=== PATIENT | female | born 1980 | race Caucasian/White ===

== ENCOUNTER 2024-06-26 10:13 | Emergency (ER) | payer MEDICAID, SELFPAY ==
[2024-06-26 10:15] VITALS: BMI 19.5
[2024-06-26 10:33] VITALS: BP 103/73; PULSE 92; RESP 20; TEMP 36.6; O2SAT 100; BMI 19.4
--- NOTE | 2024-06-26 11:22 | XR_ITS ---
Examination: PA lateral chest 2 views TECHNIQUE: Upright PA lateral chest 2 views Exam date and time: June 26, 2024 11:49 AM Comparison February 27, 2015 INDICATIONS: Shortness of breath coughing beginning 4 days ago. FINDINGS: Normal heart size No pneumonia or pulmonary edema Intact osseous structures IMPRESSION: No active disease
--- NOTE | 2024-06-26 11:56 | PD.EDURI ---
Upper Respiratory Inf. RME/HPI General Chief Complaint: Flu Like Symptoms Stated Complaint: FEVER BODY ACHES X3 DAYS Time Seen by Provider: 06/26/24 11:11 Source: patient Arrival date/time: 06/26/24 10:13 this is a 43-year-old female presents to the emergency department with complaints of generalized bodyaches, fever for 3 days. Denies shortness of breath no chest pain. Patient did not attempt any interventions or take any OTC medications prior to ED visit. Patient denies any other associated symptoms or aggravating factors. No modifying factors, no radiation, no migration. Mode of arrival: ambulatory Related Data Previous Rx's ?Medication ?Instructions ?Recorded cyclobenzaprine 10 mg tablet 10 mg PO TID PRN muscle spasm #30 10/17/20 tabs ibuprofen 600 mg tablet 600 mg PO Q8H PRN pain #30 tabs 10/17/20 albuterol sulfate 90 mcg/actuation 2 puff inhalation Q6H PRN 06/26/24 aerosol inhaler (Ventolin HFA) shortness of breath or wheezing #8.5 grams ibuprofen 800 mg tablet 800 mg PO Q8H PRN pain #20 tabs 06/26/24 Allergies Allergy/AdvReac Type Severity Reaction Status Date / Time tramadol Allergy Severe Seizure Verified 10/17/20 09:40 Review of Systems Review of Systems Systems Reviewed: All systems reviewed, normal except as documented Narrative Review of Systems: Gen: ++ fever, no chills, no weight loss EYES: No discharge, no visual changes, no pain HEENT: No ear pain, ++congestion, no sore throat PULM: No shortness of breath, ++ cough, no congestion CV: No chest pain, no dyspnea on exertion, no palpitations GI: No nausea, no vomiting, no diarrhea, no pain, no constipation : No frequency, no urgency,? no dysuria Musc/skel: No joint pain, no back pain Skin: No rash? ED Exam Narrative Physical exam: General: 43-year-old female awake and alert sitting up on Exam table in no acute distress, answering questions appropriately HENT: normocephalic, atraumatic, EOMI, PERRLA, moist mucous membranes Chest: chest wall is nontender Cardiac: regular rate and rhythm, normal S1 and S2, no murmurs, rubs, or gallops, capillary refill ?2 seconds Pulmonary: clear to auscultation bilaterally, no wheezing, crackles, or rhonchi Abdominal: active bowel sounds, soft, nontender, nondistended Neuro: A&OX3, CN II-XII intact, sensation grossly intact bilaterally in UE and LE. Skin: no rashes, no ecchymosis Ext: no lower extremity edema Course Quality Measures none Orders Category Date Time Status XR chest 2V Stat Exams 06/26/24 11:22 Completed Vital Signs Vital signs: Vital Signs Temperature 97.9 F 06/26/24 10:33 Pulse Rate 92 06/26/24 10:33 Respiratory Rate 20 06/26/24 10:33 Blood Pressure 103/73 06/26/24 10:33 Pulse Oximetry (%) 100 06/26/24 10:33 Oxygen Delivery Method Room Air 06/26/24 10:33 Upper Respiratory Infection Patient data External records reviewed:: [facility] previous records Clinical information provided by:: patient Social determinants that could affect healthcare access:: none Patient has the following chronic illnesses:: none How is presenting disease/condition affected by chronic disease/condition?: no chronic disease Evaluation data The following diagnostics were reviewed and interpreted by me:: radiology exam(s) Lab and/or radiology exams considered but not ordered:: yes considered flu swab however symptoms consistent with influenza Interpretation Summary: Examination: PA lateral chest 2 views TECHNIQUE: Upright PA lateral chest 2 views Exam date and time: June 26, 2024 11:49 AM Comparison February 27, 2015 INDICATIONS: Shortness of breath coughing beginning 4 days ago. FINDINGS: Normal heart size No pneumonia or pulmonary edema Intact osseous structures IMPRESSION: No active disease Medications / Prescriptions Medications or Prescriptions considered but not ordered:: no Medication administrations:: no Consultations Consultation(s) initiated? (list below): No Diagnosis Upper Respiratory Differential Diagnosis: upper respiratory infection, otitis media, sinusitis, viral infection, bronchitis, influenza and pharyngitis Most likely diagnosis given after review of the tests above:: influenza Admission Indicated Admission indicated?: not indicated Admission Request Was there a request for admission?: No Disposition Plan Disposition Plan: Discharge Discharge Attestation Discharge Attestation: The patient and all family members were given an opportunity to ask questions and understood the discharge instructions. Discharge instructions specifically effects, indications for sooner follow up or return to the emergency department, and the expected course of current diagnosis. Patient condition: Stable Discharge Plan Plan Patient Disposition: HOME (Self Care) Patient condition on transfer: Stable Prescriptions/Referrals Prescriptions/Med Rec: New albuterol sulfate [Ventolin HFA] 90 mcg/actuation HFA aerosol inhaler 2 puff inhalation Q6H PRN (Reason: shortness of breath or wheezing) Qty: 8.5 0RF ibuprofen 800 mg tablet 800 mg PO Q8H PRN (Reason: pain) Qty: 20 0RF No Action ibuprofen 600 mg tablet 600 mg PO Q8H PRN (Reason: pain) Qty: 30 0RF cyclobenzaprine 10 mg tablet 10 mg PO TID PRN (Reason: muscle spasm) Qty: 30 0RF Problem List Clinical Impression: Influenza Patient/Caregiver Discharge Instructions Discharge Activity: activity as tolerated Education Materials: ED Influenza (Adult) Additional Instructions: your symptoms are consistent with influenza. Start Tamiflu, antipyretics to pharmacy. Advised to increase hydration, warm tea and chicken rice soup can steel pourer helper for throat pain. Please follow-up with your clinic 3-day follow-up. If you develop any type of respiratory distress or change in condition please go immediately to nearest emergency department Print Language: Malaysian Stand Alone Forms: Agata Award Info., Patient Portal Info Letter PA/TRAILHEAD MAINTENANCE WORKER Supervising Physician PA/TRAILHEAD MAINTENANCE WORKER Supervising Physician: dr. Jay
--- NOTE | 2024-06-26 13:41 | PC.NURSE ---
no answer x 1 at 0726
--- NOTE | 2024-06-26 14:40 | PC.NURSE ---
called out for patient no answer x 2 at 1320. checked lobby and outside.
--- NOTE | 2024-06-26 15:14 | PC.NURSE ---
no answer x 3 at 1514. checked lobby and outside
== END 2024-06-26 15:19 | disposition home or self-care (01) ==
LOC: SERX 13:27
PROVIDERS: Emergency Provider Emergency Medicine
DX: J11.1 Influenza due to unidentified influenza virus with other respiratory manifestations (principal)
CPT/HCPCS: 71046; 99283

== ENCOUNTER 2025-01-03 11:15 | Emergency (ER) | payer MEDICAID, SELFPAY ==
[2025-01-03 11:26] VITALS: BP 131/82; PULSE 87; RESP 18; TEMP 36.9; O2SAT 100; BMI 20.7
--- NOTE | 2025-01-03 11:48 | EDNOTE_ITS ---
ED Skin Abcess FB-RME/HPI General Chief complaint: Skin/Abscess/Foreign Body Stated complaint: STIFF RIGHT NECK W/RASH TO ABDOMEN Time Seen by Provider: 01/03/25 11:19 Arrival date/time: 01/03/25 11:15 This is a 44 year old female with complaints of right lateral neck pain that extends to shoulder. Patient states she might ahve slept wrong. Pt took ibuprofen for pain. Pt also woke up with rash to abdomen. Denies past medical Related Data Previous Rx's ?Medication ?Instructions ?Recorded cyclobenzaprine 10 mg tablet 10 mg PO TID PRN muscle s pasm #30 10/17/20 tabs ibuprofen 600 mg tablet 600 mg PO Q8H PRN pain #30 t abs 10/17/20 albuterol sulfate 90 mcg/actuation 2 puff inhalation Q 6H PRN 06/26/24 aerosol inhaler (Ventolin HFA) shortness of breath or wheezing #8.5 grams ibuprofen 800 mg tablet 800 mg PO Q8H PRN pain #20 t abs 06/26/24 cyclobenzaprine 10 mg tablet 10 mg PO HS #14 tabs 0712/23 ibuprofen 800 mg tablet 800 mg PO Q6H PRN pain #14 t abs 01/03/25 Allergies Allergy/AdvReac Type Severity Reaction Status Date / Time tramadol Allergy Severe Seizure Verified 01/03/25 11:17 Course Orders Category Date Time Status Acetaminophen Tab [Tylenol ES Tab] Med 01/03/25 11:47 Once 1,000 mg PO X1 ONE CYCLObenzaPRINE [Flexeril] Med 01/03/25 11:47 Once 5 mg PO X1 ONE DiphenhydrAMINE [Benadryl] Med 01/03/25 11:47 Once 25 mg PO X1 ONE Vital Signs Vital signs: Vital Signs Temperature 98.5 F 01/03/25 11:26 Pulse Rate 87 01/03/25 11:26 Respiratory Rate 18 01/03/25 11:26 Blood Pressure 131/82 H 01/03/25 11:26 Pulse Oximetry (%) 100 01/03/25 11:26 Oxygen Delivery Method Room Air 01/03/25 11:26 Skin / Abscess / Foreign Body MDM Narrative MDM Narrative:: I talked to patient at length it does not appear that patient use a new soap or lotion to her body. For now we will just treat with Benadryl. the rash only appears to be in the creases of her abdomen. Patient will be given Tylenol and Flexeril. Patient previously took ibuprofen. I recommended patient to take ibuprofen and Flexeril at home. Rest ice neck. Patient denies any trauma. Patient told to follow-up with primary provider in 1 to 2 days. Come back to emergency room symptoms change or worsen. Discharge Plan Plan Patient Disposition: HOME (Self Care) Patient condition on transfer: Stable Prescriptions/Referrals Prescriptions/Med Rec: New cyclobenzaprine 10 mg tablet 10 mg PO HS Qty: 14 0RF ibuprofen 800 mg tablet 800 mg PO Q6H PRN (Reason: pain) Qty: 14 0RF No Action ibuprofen 600 mg tablet 600 mg PO Q8H PRN (Reason: pain) Qty: 30 0RF cyclobenzaprine 10 mg tablet 10 mg PO TID PRN (Reason: muscle spasm) Qty: 30 0RF albuterol sulfate [Ventolin HFA] 90 mcg/actuation HFA aerosol inhaler 2 puff inhalation Q6H PRN (Reason: shortness of breath or wheezing) Qty: 8.5 0RF ibuprofen 800 mg tablet 800 mg PO Q8H PRN (Reason: pain) Qty: 20 0RF Problem List Clinical Impression: Neck pain, Muscle pain, Rash Patient/Caregiver Discharge Instructions Discharge Activity: activity as tolerated Education Materials: ED Neck Pain Additional Instructions: Follow up with primary provider in 1-2 days. Come back to ED if symptoms change or worsen Print Language: Belizean Stand Alone Forms: Agata Award Info., Patient Portal Info Letter PA/BLOOD BANK CALENDAR CONTROL CLERK Supervising Physician ERICH/BLOOD BANK CALENDAR CONTROL CLERK Supervising Physician: [email or web address]
[2025-01-03] MEDS: ACETAMINOPHEN 500 MG TABLET 1000 MG PO (11:57)
== END 2025-01-03 12:05 | disposition home or self-care (01) ==
LOC: SERX 12:06
PROVIDERS: Emergency Provider Emergency Medicine; PCP Family Medicine
DX: M54.2 Cervicalgia (principal); R21 Rash and other nonspecific skin eruption; M79.10 Myalgia, unspecified site
CPT/HCPCS: 99282; A9270

== ENCOUNTER 2025-04-17 05:56 | Emergency (ER) | payer MEDICAID, SELFPAY ==
[2025-04-17 05:57] VITALS: BMI 18.8
[2025-04-17 06:19] VITALS: BP 127/82; PULSE 95; RESP 18; TEMP 36.8; O2SAT 98
[2025-04-17] MEDS: ONDANSETRON ODT 4 MG TABRAP PO (06:40)
--- NOTE | 2025-04-17 07:00 | PD.EDRME ---
Rapid Medical Screening Exam E Arrival date/time: 04/17/25 05:56 This is a 44-year-old female that comes into the emergency room with complaints of nausea vomiting diarrhea and chills that been going on for the past 4 days. Patient denies any urinary symptoms. Patient states she has had a hysterectomy in the past. Patient denies any cough runny nose sore throat. I have greeted and performed a focused initial assessment of this patient. Initial appropriate labs ordered at this time. A comprehensive ED assessment and evaluation of the patient and analysis of all test and completion of medical decision making process will be conducted by additional ED provider. Chief Complaint: Nausea/Vomiting/Diarrhea Time Seen by Provider: 04/17/25 06:20 Vital signs: Vital Signs Temperature 98.3 F 04/17/25 06:19 Pulse Rate 95 04/17/25 06:19 Respiratory Rate 18 04/17/25 06:19 Blood Pressure 127/82 04/17/25 06:19 Pulse Oximetry (%) 98 04/17/25 06:19 Oxygen Delivery Method Room Air 04/17/25 06:19
[2025-04-17 07:10] LABS: Collection Type, Urine Voided
[2025-04-17 07:15] LABS: Basophils # (Auto) 0.0 Thou/mm3 (0.0-0.2); Basophils % (Auto) 1 % (0-2.5); Eosinophils # (Auto) 0.1 Thou/mm3 (0.0-0.5); Eosinophils % (Auto) 1 % (0-10); Hematocrit 41.9 % (36.0-46.0); Hemoglobin 13.6 g/dL (12.0-16.0); Immature Granulocytes Auto 0.02 Thou/mm3 (0.00-0.00); Lymphocytes # (Auto) 1.5 Thou/mm3 (1.0-4.8); Lymphocytes % (Auto) 23 % (10-50); Mean Corpuscular HGB Conc 32.5 g/dl (31.0-37.0); Mean Corpuscular Hemoglobin 27.9 pg (25.0-35.0); Mean Corpuscular Volume 86 fL (80-100); Monocytes # (Auto) 0.5 Thou/mm3 (0.0-0.8); Monocytes % (Auto) 8 % (0-12); Neutrophils # (Auto) 4.3 Thou/mm3 (1.8-7.7); Neutrophils % (Auto) 68 % (37-80); Nucleated Red Blood Cell # 0.00 Thou/mm3 (0.00-0.00); Nucleated Red Blood Cell % 0 /100 WBC (0); Platelet Count 235 Thou/mm3 (140-440); RDW Standard Deviation 46.3 fL (36.4-46.3); Red Blood Count 4.87 Miln/mm3 (4.00-5.20); White Blood Count 6.4 Thou/mm3 (3.6-11.0)
[2025-04-17 07:24] LABS: Alanine Aminotransferase 22 U/L (10-49); Albumin, Serum 4.4 gm/dL (3.5-5.0); Albumin/Globulin Ratio 1.8 (1.2-2.2); Alkaline Phosphatase 56 U/L (46-116); Anion Gap 11 (7-16); Aspartate Amino Transferase 30 U/L (0-34); BUN/Creatinine Ratio 5 Ratio (12-20); Bilirubin,Total 0.3 mg/dL (0.3-1.2); Blood Urea Nitrogen < 5 mg/dL (9-23); Calcium 9.3 mg/dL (8.3-10.6); Calcium (Corrected) 9.3 mg/dL (8.5-10.1); Carbon Dioxide 25.8 mMol/L (20.0-31.0); Chloride 105 mMol/L (98-107); Creatinine (Component) 1.0 mg/dL (0.6-1.3); Estimated Creatinine Clearance 61.7 mL/min (>60); Globulin 2.5 gm/dL (2.3-3.5); Glucose 125 mg/dL (74-106); Lipase 22 U/L (12-53); Osmolality,Calculated 281 (275-295); Potassium 3.0 mMol/L (3.4-5.1); Sodium 142 mMol/L (136-145); Total Protein 6.9 gm/dL (5.7-8.2); eGFR > 60 See Note
[2025-04-17 07:27] LABS: Influenza A Ag Negative; Influenza B Ag Negative
[2025-04-17 07:43] LABS: Bacteria,Urine 1+; Bilirubin,Urine Negative (Negative); Blood,Urine Trace (Negative); Clarity,Urine Hazy (Clear/Hazy); Color,Urine Lt-Yellow (Lt Yel-Yel); Culture Indicated,Urine Contaminated; Glucose, Urine Negative (Negative); Ketones,Urine Negative (Negative); Leukocyte Esterase,Urine Positive (Negative); Nitrite,Urine Negative (Negative); PH,Urine 6.5 (5.0-7.0); Protein,Urine Negative (Neg - Trace); RBC,Urine 4 /hpf (0-3); Specific Gravity,Urine 1.016 (1.001-1.035); Squamous Epithelial Cell,Urine 19 /hpf (0-5); Urobilinogen,Urine Negative mg/dL (0.0-1.0); WBC,Urine 2 /hpf (0-5)
[2025-04-17 07:53] LABS: HCG Qualitative,Urine Negative
--- NOTE | 2025-04-17 08:59 | EDNOTE_ITS ---
<Statement entered by Supriya Hernandez MD - 05/02/25 14:15> As co-signing physician, I was present and available for consult prn. I concur with the plan and care as documented by the midlevel provider. ED Abdominal Pain RME/HPI General Chief Complaint: Nausea/Vomiting/Diarrhea Stated complaint: VOMITING, DIARRHEA, FEVER, CHILLS Time seen by provider: 04/17/25 06:20 Arrival date/time: 04/17/25 05:56 This is a 44-year-old female that comes into the emergency room with complaints of nausea vomiting diarrhea and chills that been going on for the past 4 days. Patient denies any urinary symptoms. Patient states she has had a hysterectomy in the past. Patient denies any cough runny nose sore throat. RME / HPI RME / HPI narrative: 04/17/25 05:56 This is a 44-year-old female that comes into the emergency room with complaints of nausea vomiting diarrhea and chills that been going on for the past 4 days. Patient denies any urinary symptoms. Patient states she has had a hysterectomy in the past. Patient denies any cough runny nose sore throat. I have greeted and performed a focused initial assessment of this patient. Initial appropriate labs ordered at this time. A comprehensive ED assessment and evaluation of the patient and analysis of all test and completion of medical decision making process will be conducted by additional ED provider. Related Data Previous Rx's ?Medication ?Instructions ?Recorded cyclobenzaprine 10 mg tablet 10 mg PO TID PRN muscle s pasm #30 10/17/20 tabs ibuprofen 600 mg tablet 600 mg PO Q8H PRN pain #30 t abs 10/17/20 albuterol sulfate 90 mcg/actuation 2 puff inhalation Q 6H PRN 06/26/24 aerosol inhaler (Ventolin HFA) shortness of breath or wheezing #8.5 grams ibuprofen 800 mg tablet 800 mg PO Q8H PRN pain #20 t abs 06/26/24 cyclobenzaprine 10 mg tablet 10 mg PO HS #14 tabs 12/23 ibuprofen 800 mg tablet 800 mg PO Q6H PRN pain #14 t abs 01/03/25 ondansetron 4 mg disintegrating 4 mg PO Q6H PRN nausea and 04/17/25 tablet vomiting #14 tabs Allergies Allergy/AdvReac Type Severity Reaction Status Date / Time tramadol Allergy Severe Seizure Verified 04/17/25 05:57 Review of Systems Review of Systems Systems Reviewed: All systems reviewed, normal except as documented Past Medical History Past Medical History NEUROLOGIC: Negative Neurological Disorders CARDIAC: Negative Cardiac Disorders or Congestive Heart Failure RESPIRATORY: Negative Chronic Obstructive Pulmonary Disease (COPD) GASTROINTESTINAL: Negative Gastrointestinal Disorders, Hepatitis or Colorectal Cancer GENITOURINARY: Negative Genitourinary Disorders or Renal Disease REPRODUCTIVE: Positive Endometriosis; Negative Breast Cancer MUSCULOSKELETAL: Positive Musculoskeletal Disorders and Scoliosis; Negative Bone Cancer ENDOCRINE: Negative Endocrine Disorders, Diabetes Mellitus Type 1 or Diabetes Mellitus Type 2 HEMATOLOGIC: Positive Blood Disorders and Anemia; Negative Clotting Problems OTHER HISTORY: Positive Chicken Pox; Negative Autoimmune Disease, Falls, Blood Transfusions, Blood Transfusion Reaction, Anesthesia Reactions, Organ Transplant, Chemotherapy, Radiation Therapy, Hyperbaric Therapy, MRSA, VRSA, Clostridium Difficile, Breast Cancer, Cervical Cancer, Colorectal Cancer, Lung Cancer or Ovarian Cancer Family History FAMILY HISTORY: Negative Family Psychiatric Problems, Family Respiratory Disorders, Family Cardiac Disorders, Family Gastrointestinal Problems, Family Cancer, Family Surgery or Family Anesthesia Reaction Surgical History SURGICAL: Positive Abdominal Surgery, Hysterectomy and Tubal Ligation; Negative Cardiac Surgery, Endocrine Surgery, Ear Surgery, Nephrectomy, Joint Replacement, Neurologic Surgery or Organ Transplant Social History SMOKING STATUS: Never smoker SECOND HAND EXPOSURE: No Travel History EBOLA RISK: No ED Exam Narrative Physical exam: VITAL SIGNS: Reviewed. GENERAL APPEARANCE: Alert and interactive, follows commands, no acute distress, HEAD AND FACE: Non-traumatic. ENT: PERRL, conjuctiva pink and clear, eyelid no trauma, Mucous membrane moist. NECK: Supple, nontender, no nuchal rigidity. CHEST: No tenderness, no crepitus, no paradoxical movement, no retractions. LUNGS: Clear, well ventilated, symmetric, no rales, no wheezing, no rhonchi, no stridor, good breath sounds bilaterally. HEART: Regular rate, regular rhythm, no murmur, no gallops. ABDOMEN: Soft, nondistended, no guarding, nontender NEUROLOGICAL: Gross motor function intact sensory function intact, Appropriate for age. MUSCULOSKELETAL: low back nontender, full range of motion. EXTREMITIES: No redness no swelling no skin breakdown on bilateral foot and leg. Distal neurovascular status intact bilateral foot SKIN: Color pink, dry, no rash, no lacerations, no abrasions, no contusions. Course Quality Measures none Orders Category Date Time Status Bedside COVID-19 Antigen Test NOW Care 04/17/25 06:38 Completed CBC Stat Lab 04/17/25 06:48 Completed Comprehensive Metabolic Panel Stat Lab 04/17/25 06:48 Completed HCG Qualitative,Urine Stat Lab 04/17/25 07:00 Completed Influenza A & B Rapid Panel Stat Lab 04/17/25 06:44 Completed Lipase Stat Lab 04/17/25 06:48 Completed Urinalysis, C/S if Indicated Stat Lab 04/17/25 07:00 Completed Ondansetron Odt [Zofran Odt] Med 04/17/25 06:35 Discontinued 4 mg PO X1 ONE Potassium Chloride [K-Dur] Med 04/17/25 08:58 Discontinued 20 meq PO X1 ONE cefTRIAXone [Rocephin] 1,000 mg Med 04/17/25 09:08 Discontinued Lidocaine 1% 20 ml [Xylocaine 1% 20 ML] 2.1 ml IM X1 Vital Signs Vital signs: Vital Signs Temperature 98.3 F 04/17/25 06:19 Pulse Rate 95 04/17/25 06:19 Respiratory Rate 18 04/17/25 06:19 Blood Pressure 127/82 04/17/25 06:19 Pulse Oximetry (%) 98 04/17/25 06:19 Oxygen Delivery Method Room Air 04/17/25 06:19 Abdominal Pain MDM MDM Narrative MDM Narrative:: Labs reviewed. CBC unremarkable BMP shows a potassium of 3.0 LFTs within normal limits lipase within normal limits urine did show some leukocyte esterase and 4 RBCs appears to be a dirty sample. A lot of squamous epithelial cells. Patient given Zofran and feels better. Patient has no complaints at the time of reassessment. Will have patient follow-up with primary provider in 1 to 2 days. Will send a urine culture however patient is not having urinary symptoms. Patient to follow-up with this. After discussing with patient she would like to be treated for UTI. Patient states she has had sepsis in the past and she was not really having symptoms at that time. Patient would rather get treated for UTI. Will give patient a dose of Rocephin and send patient home with [employer] Dragon dictation: Although this document has been carefully reviewed, there may still be some phonetic and other typographical errors. These errors are purely grammatical due to imperfections in the software program and should not be construed in any way to compromise the substance of the patient's medical care during this visit. Patient data External records reviewed:: [facility] previous records Clinical information provided by:: patient Social determinants that could affect healthcare access:: none Patient has the following chronic illnesses:: None How is presenting disease/condition affected by chronic disease/condition?: no chronic disease Evaluation data The following diagnostics were reviewed and interpreted by me:: lab results and radiology exam(s) Lab and/or radiology exams considered but not ordered:: None Interpretation Summary: See note Medications / Prescriptions Medications or Prescriptions considered but not ordered:: None Medication administrations:: Medication Administration History Discontinued Medications Ceftriaxone Sodium 1,000 mg/ (Lidocaine HCl 2.1 ml) 0 mg IM X1 ONE Stop: 04/17/25 09:09 Last Admin: 04/17/25 09:20 Dose: 1,000 mg Documented By: KIRSTY Ondansetron HCl (Ondansetron Odt 4 Mg Tabrap) 4 mg PO X1 ONE; Protocol Stop: 04/17/25 06:36 Last Admin: 04/17/25 06:40 Dose: 4 mg Documented By: JEANNETTE Potassium Chloride (Potassium Chloride 20 Meq Tabcr) 20 meq PO X1 ONE Stop: 04/17/25 08:59 Last Admin: 04/17/25 09:20 Dose: 20 meq Documented By: KIRSTY Matute [facility] Consultations Consultation(s) initiated? (list below): No Diagnosis Differential diagnosis abdominal pain: abdominal pain, acute appendicitis, constipation and other (UTI) Most likely diagnosis given after review of the tests above:: UTI Admission Indicated Admission indicated?: not indicated Admission Request Was there a request for admission?: No Disposition Plan Disposition Plan: Discharge Discharge Attestation Discharge Attestation: The patient and all family members were given an opportunity to ask questions and understood the discharge instructions. Discharge instructions specifically effects, indications for sooner follow up or return to the emergency department, and the expected course of current diagnosis. Patient condition: Stable Discharge Plan Plan Patient Disposition: HOME (Self Care) Patient condition on transfer: Stable Prescriptions/Referrals Prescriptions/Med Rec: New ondansetron 4 mg tablet,disintegrating 4 mg PO Q6H PRN (Reason: nausea and vomiting) Qty: 14 0RF No Action ibuprofen 600 mg tablet 600 mg PO Q8H PRN (Reason: pain) Qty: 30 0RF cyclobenzaprine 10 mg tablet 10 mg PO TID PRN (Reason: muscle spasm) Qty: 30 0RF cyclobenzaprine 10 mg tablet 10 mg PO HS Qty: 14 0RF ibuprofen 800 mg tablet 800 mg PO Q6H PRN (Reason: pain) Qty: 14 0RF albuterol sulfate [Ventolin HFA] 90 mcg/actuation HFA aerosol inhaler 2 puff inhalation Q6H PRN (Reason: shortness of breath or wheezing) Qty: 8.5 0RF ibuprofen 800 mg tablet 800 mg PO Q8H PRN (Reason: pain) Qty: 20 0RF Referrals: Gurinder Hogan MD [Primary Care Provider, Family Practice] - In 1 week Problem List Clinical Impression: Nausea, vomiting, and diarrhea, Hypokalemia Patient/Caregiver Discharge Instructions Discharge Activity: activity as tolerated Education Materials: Self-Care for Vomiting and Diarrhea Additional Instructions: Drink plenty of fluids. Follow-up with primary provider with urine culture. Follow up with primary provider in 1-2 days. Come back to ED if symptoms change or worsen Print Language: Ukrainian Stand Alone Forms: Agata Award Info., Patient Portal Info Letter PA/CORPORATE HEALTH CONSULTANT Supervising Physician ERICH/MILDRED Supervising Physician: [email or web address]
[2025-04-17] MEDS: cefTRIAXone 1,000 MG, LIDOCAINE 1% 20 ML 2.1 ML IM (09:20)
== END 2025-04-17 09:40 | disposition home or self-care (01) ==
PROVIDERS: Nurse Practitioner Family; Emergency Provider Emergency Medicine; PCP Family Medicine
DX: N39.0 Urinary tract infection, site not specified (principal)
CPT/HCPCS: 36415; 80053; 81001; 81025; 83690; 85025; 87086; 87502; 87811; 96372; 99283; J0696; J3490; Q0162; A9270